=== PATIENT | female | born 1955 | race Asian ===

== ENCOUNTER 2021-03-20 12:13 | Emergency (ER) | payer MEDICAID, SELFPAY ==
[~2021-03-20] VITALS: Ht 154.9 cm; Wt 89.4 kg
[2021-03-20 12:38] VITALS: BP_SYST 141
--- NOTE | 2021-03-20 12:52 | NUR ---
PT TRIAGED AND PLACED IN WAITING ROOM FOR AVAILABLE BED IN MAIN ED
[2021-03-20 14:00] VITALS: BP_SYST 141
--- NOTE | 2021-03-20 14:35 | NUR ---
Patient left without being seen.
== END 2021-03-20 14:35 | disposition left against medical advice (07) ==
LOC: SED 12:13
DX: S80.811A Abrasion, right lower leg, initial encounter (principal); W55.03XA Scratched by cat, initial encounter; Y93.89 Activity, other specified; Y92.89 Other specified places as the place of occurrence of the external cause; Y99.8 Other external cause status; Z53.21 Procedure and treatment not carried out due to patient leaving prior to being seen by health care provider